=== PATIENT | female | born 1955 | race Caucasian/White ===

== ENCOUNTER 2016-10-25 10:19 | Emergency (ER) | payer OTHER ==
[~2016-10-25] VITALS: Ht 175.3 cm; Wt 97.5 kg
[~2016-10-25 10:19] MED LIST: HYDROXYZINE HCL25 M1 PO; IBUPROFEN 600600 M1 PO; MEDROLDOSEPACK PO; NORCO 5-325 TA1 EACH PO; PAXIL40 MG PO; PRILOSEC40 MG PO
[2016-10-25 10:39] LABS: URINE BILIRUBIN NEGATIVE (Negative); URINE BLOOD 2+ (Negative); URINE COLOR YELLOW; URINE GLUCOSE-RANDOM* NEGATIVE (Negative); URINE KETONES NEGATIVE (Negative); URINE NITRITE NEGATIVE (Negative); URINE PROTEIN (DIPSTICK) NEGATIVE (Negative)
[2016-10-25 10:54] LABS: BACTERIA 1-9 Few /HPF (None Seen); CASTS None Seen /LPF (None Seen); CRYSTALS None Seen /LPF (None Seen); SQUAMOUS None Seen /LPF (0-3); URINE RBC 3-10 Few /HPF (0-2); URINE WBC 0-5 Rare /HPF (0-5)
[2016-10-25] MEDS ORDERED: TIZANIDINE HCL4 MG PO (11:59)
[2016-10-25] MEDS ORDERED: ONDANSETRON HCL4 M2 PO (11:59)
[2016-10-25] MEDS ORDERED: IBUPROFEN 600600 M1 PO (11:59)
[2016-10-25] MEDS ORDERED: ULTRAM 50MG TAB50 MG PO (11:59)
[2016-10-25 12:20] VITALS: BP 118/81
== END 2016-10-25 12:21 | disposition home or self-care (01) ==
LOC: ER 10:19
PROVIDERS: Nurse Practitioner
DX: S39.012A Strain of muscle, fascia and tendon of lower back, initial encounter (principal); F32.9 Major depressive disorder, single episode, unspecified; K21.9 Gastro-esophageal reflux disease without esophagitis; X58.XXXA Exposure to other specified factors, initial encounter; Y93.89 Activity, other specified; Y92.89 Other specified places as the place of occurrence of the external cause; Y99.8 Other external cause status; R10.9 Unspecified abdominal pain